=== PATIENT | female | born 1990 | race Caucasian/White ===

== ENCOUNTER → 2020-10-14 | Outpatient (CLI) | payer BC ==
[2020-10-14 16:14] LABS: Basophils # (A) 0.1 k/uL (0-0.2); Basophils % (A) 1 %; Eosinophils # (A) 0.6 k/uL (0-0.7); Eosinophils % (A) 8 %; HCT 37.4 % (34.0-46.0); HGB 12.2 gm/dL (11.4-16.0); Lymphocytes # (A) 2.1 k/uL (1.0-4.8); Lymphocytes % (A) 27 %; MCH 29.2 pg (25.0-35.0); MCHC 32.6 g/dL (31.0-37.0); MCV 89.7 fL (80.0-100.0); Mean Platelet Volume 8.7; Monocytes # (A) 0.3 k/uL (0-1.0); Monocytes % (A) 4 %; Neutrophils # (A) 4.5 k/uL (1.3-7.7); Neutrophils % (A) 58 %; Platelet Count 336 k/uL (150-450); RBC 4.17 m/uL (3.80-5.40); RDW 13.5 % (11.5-15.5); WBC 7.7 k/uL (3.8-10.6)
== END | disposition home or self-care (01) ==
LOC: LABPAT 14:53
PROVIDERS: ATTEND Obstetrics & Gynecology
DX: Z01.812 Encounter for preprocedural laboratory examination (principal); N84.0 Polyp of corpus uteri
CPT/HCPCS: 36415; 85025

== ENCOUNTER 2020-10-15 09:05 | Day surgery (SDC) | payer BC ==
[2020-10-10 15:33] VITALS: BMI 25.0
[~2020-10-15 09:05] MED LIST: DEXAMETHASONE SOD PHOSPHATE 4 MG/ML 1 ML VIAL IV ONE; HYDROmorphone 0.5 MG/0.5 ML SYRINGE IVP PRN; LACTATED RINGERS 1,000 ML IV SCH; MIDAZOLAM 2 MG/2 ML VIAL IV PRN; ONDANSETRON 4 MG/2 ML VIAL IVP ONE; Pre Op ABX Message 1 EACH MISC MISCELLANE ONE; SCOPOLAMINE 1.5MG/72HR PATCH TRANSDERM ONE
[2020-10-15] MEDS ORDERED: LIDOCAINE 1% (10MG/ML) FOR IV START INTRADERMA ONE (10:08)
[2020-10-15] MEDS ORDERED: PROPOFOL 10 MG/ML 20 ML VIAL IV ONE (11:34)
[2020-10-15] MEDS ORDERED: MIDAZOLAM 2 MG/2 ML VIAL ONE (11:34)
[2020-10-15] MEDS ORDERED: LIDOCAINE 1% INJ 10MG/ML (20 ML MDV) ONE (11:34)
[2020-10-15] MEDS ORDERED: KETOROLAC 15 MG/ML 1 ML VIAL ONE (11:34)
[2020-10-15] MEDS ORDERED: fentaNYL (PF) 50 MCG/ML 2 ML AMP ONE (11:34)
[2020-10-15] MEDS ORDERED: LIDOCAINE 1%-EPI 1:100,000 20 ML VIAL SUBMUCOSAL ONE (11:57)
--- NOTE | 2020-10-15 12:21 | P.OP ---
Date of Procedure: 10/15/20 Preoperative Diagnosis: Menometrorrhagia and endometrial polyp Postoperative Diagnosis: Same Procedure(s) Performed: Diagnostic hysteroscopy and D&C polypectomy Anesthesia: MAC Surgeon: Michelle Doyle Estimated Blood Loss (ml): 10 IV fluids (ml): 500 Urine output (ml): 50 Pathology: other (Endometrial curettings) Condition: stable Disposition: PACU Indications for Procedure: History of menometrorrhagia with findings of endometrial polyp on pelvic ultrasound Operative Findings: The patient is menstruating and there is a large amount of clot and debris in the uterus. This did clear somewhat with the hysteroscopy fluid and fluffy endometrium was appreciated. No obvious intracavitary lesion consistent with polyp was visualized but again the endometrium was quite fluffy with clots. Bilateral tubal ostia were visualized. Description of Procedure: After the patient was met in the preoperative holding area and all questions were answered, she was taken to the operating room where appropriate timeout procedure was undertaken. She was in positioned, prepped and draped in the dorsal lithotomy position. Anesthetic had been administered without incident. Exam under anesthetic was undertaken. The bladder was drained for approximately 50 mL of clear urine. Sinusitis speculum was placed in the vagina and the cervix was noted to be patulous. The cervix was grasped anteriorly with a single-tooth tenaculum and a paracervical block with lidocaine plus epinephrine was placed. The uterus was sounded to 9 cm. The cervix was RD dilated to allow for passage of the diagnostic hysteroscope. The hysteroscope was introduced and a large amount of clot and debris was encountered. This eventually cleared with the hysteroscopy fluid in the cavity was assessed. There was very fluffy endometrium that was actively bleeding however no gross intracavitary lesions consistent with polyp specifically. The bilateral tubal ostia were visualized. It is possible there is polyp that was obscured by blood or clot. The hysteroscope was removed and the cervix was further dilated to allow for passage of the sharp banjo curet. The cavity was circumferentially curettaged with a moderate amount of clot and debris. There was tissue consistent with possible polyp obtained. After circumferentially curettaged with no further tissue obtained on the instrument removed. The cervix was observed and no active bleeding was noted. Instruments were then removed and the patient was awoken from anesthetic without incident. She was transported recovery in good condition. All counts reported to me as correct by the operating staff.
[2020-10-15 12:23] VITALS: TEMP 97.4
[2020-10-15 12:30] VITALS: RESP 16
[2020-10-15] MEDS ORDERED: SODIUM CHLORIDE 0.9% 1,000 ML IV ONE ×2 (12:35)
[2020-10-15 13:16] VITALS: BP 110/71; PULSE 63
== END 2020-10-15 13:37 | disposition home or self-care (01) ==
LOC: OR 09:05
PROVIDERS: ATTEND Obstetrics & Gynecology
DX: N84.0 Polyp of corpus uteri (principal); N92.0 Excessive and frequent menstruation with regular cycle; N92.1 Excessive and frequent menstruation with irregular cycle; Z98.890 Other specified postprocedural states
CPT/HCPCS: 81025; 88305; 58558; J2250; J1100; J2405; J2001; J3010; J1885; J2704

== ENCOUNTER 2023-06-22 16:46 | Emergency (ER) | payer BC ==
[2023-06-22 17:35] VITALS: PULSE 79; RESP 18
--- NOTE | 2023-06-22 17:57 | ED ---
General Adult HPI - General Chief complaint: Abdominal Pain Stated complaint: Abd Pain,Chronic Stabbing pain-19wks Time Seen by Provider: 06/22/23 17:29 Source: patient, RN notes reviewed Mode of arrival: ambulatory Limitations: no limitations - History of Present Illness Initial comments: 33 year old female presents to the emergency department for evaluation of lower abdominal cramping x2 days. Patient states that this started yesterday in her lower abdomen but has gotten worse today. She states that she was evaluated at her OBs office today and a urine sample was obtained. She states that it was normal. She reports that she was told to take extra strength Tylenol and this has not helped. Last dose at 2:30. Admits to nausea without vomiting. Denies fever, chills. Denies vaginal bleeding. - Related Data Home Medications Medication Instructions Recorded Confirmed No Known Home Medications 10/10/20 10/10/20 Allergies Allergy/AdvReac Type Severity Reaction Status Date / Time No Known Allergies Allergy Verified 06/22/23 17:27 Review of Systems ROS Statement: Those systems with pertinent positive or pertinent negative responses have been documented in the HPI. ROS Other: All systems not noted in ROS Statement are negative. Past Medical History Additional Past Medical History / Comment(s): HEAVY IRREGULAR MENSES. UTERINE POLYP History of Any Multi-Drug Resistant Organisms: None Reported Additional Past Surgical History / Comment(s): WISDOM TEETH REMOVED UNDER ANESTHESIA Past Anesthesia/Blood Transfusion Reactions: No Reported Reaction Past Psychological History: No Psychological Hx Reported Smoking Status: Never smoker Past Alcohol Use History: None Reported Past Drug Use History: None Reported - Past Family History Mother Family Medical History: No Reported History General Exam Limitations: no limitations General appearance: alert, in no apparent distress Head exam: Present: atraumatic, normocephalic, normal inspection Eye exam: Present: normal appearance, PERRL, EOMI. Absent: scleral icterus, conjunctival injection, periorbital swelling ENT exam: Present: normal exam, mucous membranes moist Neck exam: Present: normal inspection. Absent: tenderness, meningismus, lymphadenopathy Respiratory exam: Present: normal lung sounds bilaterally. Absent: respiratory distress, wheezes, rales, rhonchi, stridor Cardiovascular Exam: Present: regular rate, normal rhythm, normal heart sounds. Absent: systolic murmur, diastolic murmur, rubs, gallop, clicks GI/Abdominal exam: Present: soft, tenderness, normal bowel sounds, other (uterine fundus at umbilicus). Absent: distended, guarding, rebound, rigid Extremities exam: Present: normal inspection, full ROM, normal capillary refill. Absent: tenderness, pedal edema, joint swelling, calf tenderness Back exam: Present: normal inspection Neurological exam: Present: alert, oriented X3 Psychiatric exam: Present: normal affect, normal mood Skin exam: Present: warm, dry, intact, normal color. Absent: rash Course Vital Signs 06/22/23 06/22/23 17:24 20:00 Temperature 97.8 F 98.1 F Pulse Rate 79 79 Respiratory 18 18 Rate Blood Pressure 134/76 123/75 O2 Sat by Pulse 99 97 Oximetry Medical Decision Making - Medical Decision Making Was pt. sent in by a medical professional or institution (ALCIDES Owens, SAWMILLING OPERATOR, urgent care, hospital, or group home...) When possible be specific @ -No Did you speak to anyone other than the patient for history (EMS, parent, family, police, friend...)? What history was obtained from this source @ -No Did you review nursing and triage notes (agree or disagree)? Why? @ -I reviewed and agree with nursing and triage notes Were old charts reviewed (outside hosp., previous admission, EMS record, old EKG, old radiological studies, urgent care reports/EKG's, group home records)? Report findings @ -No old charts were reviewed Differential Diagnosis (chest pain, altered mental status, abdominal pain women, abdominal pain men, vaginal bleeding, weakness, fever, dyspnea, syncope, headache, dizziness, GI bleed, back pain, seizure, CVA, palpatations, mental health, musculoskeletal)? @ -Differential Musculoskeletal Muscular strain, contusion, ligament sprain, fracture, arthritis, septic arthritis, bursitis, cellulitis, muscle spasm, nerve compression, DVT, arterial occlusion, herpes zoster, electrolyte abnormality, tumor.... This is not meant to be in all inclusive list EKG interpreted by me (3pts min.). @ -none X-rays interpreted by me (1pt min.). @ -None done CT interpreted by me (1pt min.). @ -None done U/S interpreted by me (1pt. min.). @ - ultrasound shows single viable intrauterine , heart rate of 168, cervical length 4.1 cm What testing was considered but not performed or refused? (CT, X-rays, U/S, labs)? Why? @ -None What meds were considered but not given or refused? Why? @ -None Did you discuss the management of the patient with other professionals (aishwarya hartley i.e. , PA, SAWMILLING OPERATOR, lab, RT, psych nurse, social scientist, rn appeals, teacher, purchasing officer, case coordinator)? Give summary @ -No Was smoking cessation discussed for >3mins.? @ -No Was critical care preformed (if so, how long)? @ -No Were there social determinants of health that impacted care today? How? (Homelessness, low income, unemployed, alcoholism, drug addiction, transpor tation, low edu. Level, literacy, decrease access to med. care, fci, rehab)? @ -No Was there de-escalation of care discussed even if they declined (Discuss DNR or withdrawal of care, Hospice)? DNR status @ -No What co-morbidities impacted this encounter? (DM, HTN, Smoking, COPD, CAD, Cancer, CVA, ARF, Chemo, Hep., AIDS, mental health diagnosis, sleep apnea, morbid obesity)? @ -None Was patient admitted / discharged? Hospital course, mention meds given and route, prescriptions, significant lab abnormalities, going to OR and other pertinent info. @ -Discharged. Patient presented to the emergency department for evaluation of abdominal cramping and . She denies vaginal bleeding, fever, chills. Admits to nausea without vomiting. Laboratory studies obtained.CBC shows a WBC 14.3 likely physiologic due to , hemoglobin 14.0; CMP shows sodium 134, potassium 3.9, creatinine 0.4 to; UA shows negative nitrite, negative leukocyte esterase with 2+ ketones. ultrasound shows a single viable intrauterine . Advised patient on findings and to closely follow up with her OB. Discussed using Tylenol for discomfort and increasing fluid intake. Return precautions discussed. Patient understood and agreed with plan. Patient stable at time of discharge. Case discussed Dr. Almonte. Undiagnosed new problem with uncertain prognosis? @ -No Drug Therapy requiring intensive monitoring for toxicity (Heparin, Nitro, Insulin, Cardizem)? @ -No Were any procedures done? @ -No Diagnosis/symptom? @ -Abdominal cramping and Acute, or Chronic, or Acute on Chronic? @ -Acute Uncomplicated (without systemic symptoms) or Complicated (systemic symptoms)? @ -Uncomplicated Side effects of treatment? @ -No Exacerbation, Progression, or Severe Exacerbation? @ -No Poses a threat to life or bodily function? How? (Chest pain, USA, CA, pneumonia, PE, COPD, DKA, ARF, appy, cholecystitis, CVA, Diverticulitis, Homicidal, Suicidal, threat to staff... and all critical care pts) @ -No - Lab Data Result diagrams: 06/22/23 18:45 06/22/23 18:45 Lab Results 06/22/23 06/22/23 06/22/23 Range/Units 18:45 18:45 18:45 WBC 14.3 H (3.8-10.6) k/uL RBC 4.50 (3.80-5.40) m/uL Hgb 14.0 (11.4-16.0) gm/dL Hct 41.8 (34.0-46.0) % MCV 93.0 (80.0-100.0) fL MCH 31.1 (25.0-35.0) pg MCHC 33.5 (31.0-37.0) g/dL RDW 12.9 (11.5-15.5) % Plt Count 303 (150-450) k/uL MPV 8.5 Neutrophils % 79 % Lymphocytes % 14 % Monocytes % 3 % Eosinophils % 2 % Basophils % 0 % Neutrophils # 11.3 H (1.3-7.7) k/uL Lymphocytes # 2.0 (1.0-4.8) k/uL Monocytes # 0.4 (0-1.0) k/uL Eosinophils # 0.3 (0-0.7) k/uL Basophils # 0.1 (0-0.2) k/uL PT 9.7 L (10.0-12.5) sec INR 0.9 (<1.2) APTT 25.5 (22.0-30.0) sec Sodium (137-145) mmol/L Potassium (3.5-5.1) mmol/L Chloride (98-107) mmol/L Carbon Dioxide (22-30) mmol/L Anion Gap mmol/L BUN (7-17) mg/dL Creatinine (0.52-1.04) mg/dL Est GFR (CKD-EPI)AfAm (>60 ml/min/1.73 sqM) Est GFR (CKD-EPI)NonAf (>60 ml/min/1.73 sqM) Glucose (74-99) mg/dL Calcium (8.4-10.2) mg/dL Total Bilirubin (0.2-1.3) mg/dL AST (14-36) U/L ALT (4-34) U/L Alkaline Phosphatase (38-126) U/L C-Reactive Protein (<1.0) mg/dL Total Protein (6.3-8.2) g/dL Albumin (3.5-5.0) g/dL Amylase (30-110) U/L Lipase (23-300) U/L Urine Color Light Yellow Urine Appearance Clear (Clear) Urine pH 6.5 (5.0-8.0) Ur Specific [place] 1.017 (1.001-1.035) Urine Protein Negative (Negative) Urine Glucose (UA) Negative (Negative) Urine Ketones 2+ H (Negative) Urine Blood Negative (Negative) Urine Nitrite Negative (Negative) Urine Bilirubin Negative (Negative) Urine Urobilinogen <2.0 (<2.0) mg/dL Ur Leukocyte Esterase Negative (Negative) 06/22/23 Range/Units 18:45 WBC (3.8-10.6) k/uL RBC (3.80-5.40) m/uL Hgb (11.4-16.0) gm/dL Hct (34.0-46.0) % MCV (80.0-100.0) fL MCH (25.0-35.0) pg MCHC (31.0-37.0) g/dL RDW (11.5-15.5) % Plt Count (150-450) k/uL MPV Neutrophils % % Lymphocytes % % Monocytes % % Eosinophils % % Basophils % % Neutrophils # (1.3-7.7) k/uL Lymphocytes # (1.0-4.8) k/uL Monocytes # (0-1.0) k/uL Eosinophils # (0-0.7) k/uL Basophils # (0-0.2) k/uL PT (10.0-12.5) sec INR (<1.2) APTT (22.0-30.0) sec Sodium 134 L (137-145) mmol/L Potassium 3.9 (3.5-5.1) mmol/L Chloride 106 (98-107) mmol/L Carbon Dioxide 21 L (22-30) mmol/L Anion Gap 7 mmol/L BUN 4 L (7-17) mg/dL Creatinine 0.42 L (0.52-1.04) mg/dL Est GFR (CKD-EPI)AfAm >90 (>60 ml/min/1.73 sqM) Est GFR (CKD-EPI)NonAf >90 (>60 ml/min/1.73 sqM) Glucose 85 (74-99) mg/dL Calcium 9.0 (8.4-10.2) mg/dL Total Bilirubin 0.4 (0.2-1.3) mg/dL AST 21 (14-36) U/L ALT 13 (4-34) U/L Alkaline Phosphatase 70 (38-126) U/L C-Reactive Protein 2.4 H (<1.0) mg/dL Total Protein 7.0 (6.3-8.2) g/dL Albumin 4.0 (3.5-5.0) g/dL Amylase 41 (30-110) U/L Lipase 44 (23-300) U/L Urine Color Urine Appearance (Clear) Urine pH (5.0-8.0) Ur Specific [place] (1.001-1.035) Urine Protein (Negative) Urine Glucose (UA) (Negative) Urine Ketones (Negative) Urine Blood (Negative) Urine Nitrite (Negative) Urine Bilirubin (Negative) Urine Urobilinogen (<2.0) mg/dL Ur Leukocyte Esterase (Negative) Disposition Clinical Impression: Abdominal cramping affecting Disposition: HOME SELF-CARE Condition: Stable Additional Instructions: Please follow up with your PARTY CHIEF. Utilize Tylenol for pain. Return to the emergency department for new or worsening symptoms. Is patient prescribed a controlled substance at d/c from ED?: No Referrals: None,Stated [Primary Care Provider] - 1-2 days
[2023-06-22 19:05] LABS: Basophils # (A) 0.1 k/uL (0-0.2); Basophils % (A) 0 %; Eosinophils # (A) 0.3 k/uL (0-0.7); Eosinophils % (A) 2 %; HCT 41.8 % (34.0-46.0); Lymphocytes % (A) 14 %; MCH 31.1 pg (25.0-35.0); MCHC 33.5 g/dL (31.0-37.0); Mean Platelet Volume 8.5; Monocytes # (A) 0.4 k/uL (0-1.0); Monocytes % (A) 3 %; Neutrophils # (A) 11.3 k/uL (1.3-7.7); Neutrophils % (A) 79 %; Platelet Count 303 k/uL (150-450); RDW 12.9 % (11.5-15.5); WBC 14.3 k/uL (3.8-10.6)
--- NOTE | 2023-06-22 19:18 | US ---
EXAMINATION TYPE: US OB >= 14 wk fetus DATE OF EXAM: 06/22/2023 COMPARISON: None CLINICAL INDICATION: Female, 33 years old with history of pain; Lower pelvic pain on and off x 1 day. No bleeding. TECHNIQUE: Transabdominal (TA) GESTATIONAL AGE / DATING Physician Established: (19 weeks/3 days) EDC: 11/13/23 Dates by First Scan: No previous this is first scan Dates by Current Scan: (20 weeks/0 days) EDC: 11/09/23 Beta HCG (if available): Not available at this time SURVEY IUP: Single PLACENTA: Posterior PREVIA: No Previa NADIRA: 13.6 cm Normal CERVICAL LENGTH (transabdominal: norm > 3.0cm): 4.1 cm BIOMETRY PRESENTATION: Breech LIE: Transverse with head maternal R BPD: 4.6 cm 19 weeks / 6 days HC: 17.7 cm 20 weeks / 1 days AC: 15.7 cm 20 weeks / 6 days FL: 3.2 cm 20 weeks / 0 days ESTIMATED WEIGHT IN GRAMS: 354 grams ESTIMATED WEIGHT IN LBS/OZ: 0 lbs. 12 oz. WEIGHT PERCENTAGE BASED ON ESTABLISHED DATES: 93.7% HC/AC: 1.13 Normal FL/AC: 20.47 Normal HEART RATE: 168 bpm RHYTHM: Normal IMPRESSION: Single viable intrauterine as described above. This is a limited exam with in the emergency department and does not include an evaluation of the anatomy or anomalies.
[2023-06-22 19:21] LABS: ALT 13 U/L (4-34); AST 21 U/L (14-36); African American GFR (CKD) >90 (>60 ml/min/1.73 sqM); Alkaline Phosphatase 70 U/L (38-126); Amylase 41 U/L (30-110); Anion Gap 7 mmol/L; Blood Urea Nitrogen 4 mg/dL (7-17); C Reactive Protein 2.4 mg/dL (<1.0); Carbon Dioxide 21 mmol/L (22-30); Chloride 106 mmol/L (98-107); Glucose 85 mg/dL (74-99); Lipase 44 U/L (23-300); Non-African American GFR(CKD) >90 (>60 ml/min/1.73 sqM); Potassium 3.9 mmol/L (3.5-5.1); Sodium 134 mmol/L (137-145); Total Bilirubin 0.4 mg/dL (0.2-1.3)
[2023-06-22 19:24] LABS: INR 0.9 (<1.2); Partial Thromboplastin Time 25.5 sec (22.0-30.0); Prothrombin Time 9.7 sec (10.0-12.5)
[2023-06-22 19:27] LABS: Appearance,Urine Clear (Clear); Bilirubin,Urine Negative (Negative); Blood,Urine Negative (Negative); Color,Urine Light Yellow; Glucose,Urine (UA) Negative (Negative); Ketones,Urine 2+ (Negative); Leukocyte Esterase,Urine Negative (Negative); Nitrite,Urine Negative (Negative); PH, Urine 6.5 (5.0-8.0); Protein,Urine Negative (Negative); Specific Gravity,Urine 1.017 (1.001-1.035); Urobilinogen,Urine <2.0 mg/dL (<2.0)
[2023-06-22 20:21] VITALS: BP 123/75; TEMP 98.1
== END 2023-06-22 20:02 | disposition home or self-care (01) ==
LOC: EC 16:46
DX: O26.892 Other specified pregnancy related conditions, second trimester (principal); R10.30 Lower abdominal pain, unspecified; Z3A.19 19 weeks gestation of pregnancy
CPT/HCPCS: 36415; 76805; 80053; 81003; 82150; 83690; 85025; 85610; 85730; 86140; 99284

== ENCOUNTER 2023-11-08 21:06 | Inpatient (IN) | payer BC ==
[2023-11-08 23:17] LABS: Basophils # (A) 0.1 k/uL (0-0.2); Basophils % (A) 0 %; Eosinophils # (A) 0.2 k/uL (0-0.7); Eosinophils % (A) 2 %; HCT 41.7 % (34.0-46.0); HGB 13.4 gm/dL (11.4-16.0); Lymphocytes # (A) 2.1 k/uL (1.0-4.8); Lymphocytes % (A) 17 %; MCHC 32.1 g/dL (31.0-37.0); MCV 93.6 fL (80.0-100.0); Mean Platelet Volume 9.8; Monocytes # (A) 0.7 k/uL (0-1.0); Monocytes % (A) 6 %; Neutrophils % (A) 73 %; Platelet Count 261 k/uL (150-450); RBC 4.45 m/uL (3.80-5.40); RDW 13.9 % (11.5-15.5); WBC 12.2 k/uL (3.8-10.6)
[2023-11-09] MEDS ORDERED: OXYTOCIN 10 UNIT/ML 1 ML VIAL IM PRN (07:11)
[2023-11-09] MEDS ORDERED: METHYLERGONOVINE 0.2 MG/ML 1 ML AMP IM PRN (07:11)
[2023-11-09] MEDS ORDERED: CARBOPROST TROMETHAMINE 250 MCG/ML 1 ML AMP IM PRN (07:11)
[2023-11-09] MEDS ORDERED: TERBUTALINE 1 MG/ML VIAL SQ PRN (07:11)
[2023-11-09] MEDS ORDERED: miSOPROStoL 200 MCG TAB PO PRN (07:11)
[2023-11-09] MEDS ORDERED: TRANEXAMIC 1,000 MG/100ML-NACL 1,000 MG in EMPTY BAG 1 BAG IV PRN (07:11)
[2023-11-09] MEDS: LACTATED RINGERS 1,000 ML IV SCH (07:19)
[2023-11-09] MEDS: OXYTOCIN 30 UNITS/500 ML NS 30 UNIT in SALINE 1 500ML.BAG IV SCH (07:19)
--- NOTE | 2023-11-09 08:23 | P.HPOB ---
History of Present Illness H&P Date: 11/09/23 Chief Complaint: Contractions at 39 weeks This is a 33-year-old 4 para 2011 woman who has an estimated due date of 11/13/2023 who presents at 39+ weeks gestation with regular painful contractions. She commenced of regular painful contractions at approximately 5:30 PM yesterday. She presented to labor and delivery triage at which time she had not had significant cervical change but she was regularly anita and very uncomfortable. She denied leakage of fluids or vaginal bleeding. She has had an uncomplicated although in the office has had an unstable lie. Most recent ultrasound confirms vertex presentation. Laboratory data: Blood type O positive, antibody screen negative, rubella immune, VDRL nonreactive, hep Cristela surface antigen negative, HIV negative, gonorrhea and clinic cultures negative, hepatitis C negative, group B strep negative, glucose tolerance testing within normal limits. Obstetric history: 2013 first trimester missed AB, 2012 term 9 lbs. 8 oz. normal spontaneous vaginal delivery, 2016 term 8 lbs. 14 oz., normal spontaneous vaginal delivery. Review of Systems All systems: negative Past Medical History Additional Past Medical History / Comment(s): HEAVY IRREGULAR MENSES. UTERINE POLYP History of Any Multi-Drug Resistant Organisms: None Reported Additional Past Surgical History / Comment(s): WISDOM TEETH REMOVED UNDER ANESTHESIA, D&C Past Anesthesia/Blood Transfusion Reactions: No Reported Reaction Past Psychological History: No Psychological Hx Reported Smoking Status: Never smoker Past Alcohol Use History: None Reported Past Drug Use History: None Reported - Past Family History Mother Family Medical History: No Reported History Medications and Allergies Home Medications Medication Instructions Recorded Confirmed Type Vit No.179/Iron/Folic 1 tab PO DAILY 11/08/23 11/08/23 History [ Tablet] Allergies Allergy/AdvReac Type Severity Reaction Status Date / Time No Known Allergies Allergy Verified 11/08/23 21:11 Exam Vital Signs Temp Pulse Resp BP Pulse Ox 11/08/23 22:58 97.3 F L 78 16 121/69 98 11/08/23 21:09 97.3 F L 75 16 121/69 97 Intake and Output 11/08/23 11/09/23 11/09/23 22:59 06:59 14:59 Other: # Voids 2 Weight 93.44 kg Bedside ultrasound confirms vertex presentation. Limited chart targeted physical exam is performed: Cervix is very posterior, 3 cm dilated, 50% effaced and the vertex in the -3 station. Artificial rupture of membranes is undertaken and clear fluid is noted. heart tones are category 1. She is irregularly anita every 3-6 minutes. Pitocin augmentation has been initiated. Results Result Diagrams: 11/08/23 22:46 Abnormal Lab Results - Last 24 Hours (Table) 11/08/23 Range/Units 22:46 WBC 12.2 H (3.8-10.6) k/uL Neutrophils # 9.0 H (1.3-7.7) k/uL Assessment and Plan (1) Labor, prolonged latent phase Current Visit: Yes Status: Acute Code(s): O63.0 - PROLONGED FIRST STAGE (OF LABOR) SNOMED Code(s): 719395018 (2) 39 weeks gestation of Current Visit: Yes Status: Acute Code(s): Z3A.39 - 39 WEEKS GESTATION OF SNOMED Code(s): 62029509 Plan: 3-year-old 4 para 2011 woman admitted in latent labor yesterday evening with minimal cervical change through the night. Induction of labor is undertak en with Pitocin and artificial rupture of membranes. She is group B strep negative and Rh+. status currently reassuring by external monitoring. She may have an epidural upon request in active labor. I anticipate normal spontaneous vaginal delivery.
[2023-11-09] MEDS: NALBUPHINE 10 MG/ML (10 ML MDV) IV PRN (09:00)
[2023-11-09] MEDS ORDERED: SODIUM CHLORIDE 0.9% 250 ML BAG ONE (11:32)
[2023-11-09] MEDS ORDERED: ROPIVACAINE 5 MG/ML 30 ML VIAL ONE (11:32)
[2023-11-09] MEDS ORDERED: fentaNYL (PF) 50 MCG/ML 5 ML AMP ONE (11:32)
[2023-11-09] MEDS: LIDOCAINE 0.5% (PF) 5 MG/ML (50 ML SDV) SQ PRN (13:40)
[2023-11-09] MEDS ORDERED: ZOLPIDEM 5 MG TAB PO PRN (13:52)
[2023-11-09] MEDS ORDERED: ACETAMINOPHEN TAB 325 MG TAB PO PRN (13:52)
[2023-11-09] MEDS ORDERED: diphenhydrAMINE 50 MG CAP PO PRN (13:52)
[2023-11-09] MEDS ORDERED: BENZOCAINE/MENTHOL SPRAY 1 GM/SPRAY AEROSOL TOPICAL PRN (13:52)
[2023-11-09] MEDS ORDERED: HYDROCORTISONE 2.5% RECTAL CREAM 30 GM TUBE RECTAL PRN (13:52)
[2023-11-09] MEDS ORDERED: diphenhydrAMINE 25 MG CAP PO PRN (13:52)
[2023-11-09] MEDS ORDERED: LANOLIN CREAM 1 GM TUBE TOPICAL PRN (13:52)
[2023-11-09] MEDS ORDERED: diphenhydrAMINE 50 MG/ML 1 ML VIAL IVP PRN ×2 (13:52)
[2023-11-09] MEDS ORDERED: SIMETHICONE 80 MG CHEWABLE PO PRN (13:52)
--- NOTE | 2023-11-09 13:52 | P.PROBDLV ---
Vaginal Delivery Note - . Vaginal Delivery Note: : Male infant in the vertex left occiput anterior position with Apgars of 9 at 1 minute and 9 at 5 minutes weighing 8 lbs. 7 oz., 3840 g. Intact, three-vessel cord placenta with meconium staining. Superficial first-degree perineal laceration. EBL 200 mL's. Delivery summary: This is a 33-year-old 4 para 2012 woman who was admitted at 39-3/7 weeks gestation in latent labor. On admission she was 2 cm dilated and anita regularly however her cervix did not change for approximately 12 hours. She was then initiated on Pitocin on for augmentation and underwent artificial rupture of membranes. Fluid was initially clear. She received Nubain and ultimately an epidural anesthetic. She progressed to complete cervical dilation and commenced pushing with excellent maternal effort. After 20 minute second stage of labor the was . She was repositioned, prepped and draped in the dorsal modified Patricia position. With additional maternal effort the anterior followed by the posterior shoulders were delivered and the rest the was delivered onto the field. The nose and mouth were bulb suctioned. The infant was placed on the maternal abdomen and the cord was clamped and cut. Apgars were 9 at 1 minute and 9 at 5 minutes. An intact, three-vessel cord placenta was expressed after a 3 minute third stage of labor. It was noted to be meconium-stained. The perineum was inspected and a shallow first-degree laceration was noted. This was infused with lidocaine and repaired with 3-0 Vicryl suture. The rest the vagina and cervix were inspected and no further lacerations were noted. The uterus was massaged and noted to be firm at the level of the umbilicus. She received Pitocin following the third stage of labor. All counts were correct and both mother and infant were doing well post delivery in the room.
[2023-11-09] MEDS ORDERED: OXYTOCIN 30 UNITS/500 ML NS 30 UNIT in SALINE 1 500ML.BAG IV SCH (14:00)
[2023-11-09 17:22] VITALS: RESP 16
[2023-11-09] MEDS: SENNOSIDES-DOCUSATE SODIUM 1 EACH TAB PO SCH (21:32)
[2023-11-09] MEDS: IBUPROFEN 600 MG TAB PO PRN (23:59)
[2023-11-10 08:52] LABS: Basophils # (A) 0.1 k/uL (0-0.2); Basophils % (A) 0 %; Eosinophils # (A) 0.2 k/uL (0-0.7); Eosinophils % (A) 1 %; HCT 39.4 % (34.0-46.0); HGB 12.9 gm/dL (11.4-16.0); Lymphocytes # (A) 1.6 k/uL (1.0-4.8); Lymphocytes % (A) 12 %; MCH 30.4 pg (25.0-35.0); MCHC 32.8 g/dL (31.0-37.0); MCV 92.8 fL (80.0-100.0); Mean Platelet Volume 9.6; Monocytes # (A) 0.6 k/uL (0-1.0); Monocytes % (A) 5 %; Neutrophils # (A) 10.9 k/uL (1.3-7.7); Neutrophils % (A) 81 %; Platelet Count 256 k/uL (150-450); RBC 4.25 m/uL (3.80-5.40); RDW 13.9 % (11.5-15.5); WBC 13.5 k/uL (3.8-10.6)
--- NOTE | 2023-11-10 16:14 | P.DS ---
Providers Date of admission: 11/08/23 22:32 Expected date of discharge: 11/10/23 Attending physician: Michelle Doyle Primary care physician: Stated None - Discharge Diagnosis(es) (1) Labor, prolonged latent phase Current Visit: Yes Status: Acute (2) 39 weeks gestation of Current Visit: Yes Status: Acute (3) Perineal laceration with delivery, first degree Current Visit: Yes Status: Acute (4) Normal spontaneous vaginal delivery Current Visit: Yes Status: Acute Hospital Course: This is a 33-year-old 4 now para 3013 woman who is admitted at 39-3/7 weeks gestation in latent labor. She was observed through the night however did not progress despite regular uterine contractions. She then underwent Pitocin induction of labor with artificial rupture of membranes. She received an epidural anesthetic. She reached complete cervical dilation and went on to have an unremarkable Spontaneous vaginal delivery of a liveborn male infant over a first-degree perineal laceration. Apgars were 9 at 1 minute and 9 at 5 minutes and weight was 8 lbs. 7 oz. Please see the delivery summary for details. The patient's course was unremarkable. By day #1 she was ambulating and voiding without difficulty. Her vital signs were stable. She was breast-feeding without difficulty and her lochia was decreasing. She was therefore discharged home with routine instructions for care and follow-up. Patient Condition at Discharge: Good Plan - Discharge Summary New Discharge Prescriptions: No Action Vit No.179/Iron/Folic [ Tablet] 1 tab PO DAILY Discharge Medication List Vit No.179/Iron/Folic [ Tablet] 1 tab PO DAILY 11/08/23 [History] Follow up Appointment(s)/Referral(s): Michelle Doyle MD [STAFF PHYSICIAN] - 6 Weeks (PP 12/21/2023 @1:15 Pm) Activity/Diet/Wound Care/Special Instructions: Follow-up in the office in 6 weeks . Call with any concerning signs or symptoms including heavy vaginal bleeding, severe abdominal pain, fever greater than 101, swelling or redness of the lower extremities, foul vaginal discharge, or signs of depression. Nothing in the vagina for 6 weeks after delivery, specifically no intercourse. Discharge Disposition: HOME SELF-CARE
[2023-11-10 17:59] VITALS: BP 108/70; PULSE 72; TEMP 98.2
== END 2023-11-10 17:45 | disposition home or self-care (01) | DRG 807 ==
LOC: FBPOP 21:06 → OBSVTOIN 22:32 → 4FBP 22:32
PROVIDERS: ADMIT Obstetrics & Gynecology Obstetrics; ATTEND Obstetrics & Gynecology
PROC: 10E0XZZ Delivery of Products of Conception, External Approach (ICD-10-PCS; principal; 2023-11-09)
PROC: 10907ZC Drainage of Amniotic Fluid, Therapeutic from Products of Conception, Via Natural or Artificial Opening (ICD-10-PCS; principal; 2023-11-09)
PROC: 0HQ9XZZ Repair Perineum Skin, External Approach (ICD-10-PCS; principal; 2023-11-09)
DX: O63.0 Prolonged first stage (of labor) (principal); Z37.0 Single live birth; O70.0 First degree perineal laceration during delivery; O77.0 Labor and delivery complicated by meconium in amniotic fluid; Z3A.39 39 weeks gestation of pregnancy; Z28.310 Unvaccinated for COVID-19; Z28.21 Immunization not carried out because of patient refusal
CPT/HCPCS: 59025; 84112; 85025; 86850; 86900; 86901; 99213